=== PATIENT | female | born 1935 | race Caucasian/White ===

== ENCOUNTER → 2017-01-18 | Outpatient (CLI) | payer MEDICARE ==
[2016-02-27 14:15] VITALS: BP 147/79
[~2017-01-18] MED LIST: FAMO-63 PO; MAGIC MOUTHWASH PO; NAPR500T PO
--- NOTE | 2017-01-18 11:48 | RAD ---
DATE: 01/18/2017 EXAM: MAMMO ARBEN SCREENING BILATERAL HISTORY: Screening COMPARISON: 08/25/2015 This study was interpreted with the benefit of Computerized Aided Detection (CAD). FINDINGS: Breast Density: FATTY The Breast Parenchyma is primarily fatty replaced. Breast parenchyma level density A.. There is not been a significant change in the appearance of the breasts. Note is made of the right breast is slightly smaller than on the left similar to the previous exam IMPRESSION: Benign findings BI-RADS CATEGORY: 2 BENIGN FINDING(S) RECOMMENDED FOLLOW-UP: 12M 12 MONTH FOLLOW-UP PQRS compliance statement: Patient information was entered into a reminder system with a target due date 01/18/2018 for the next mammogram. Mammography is a sensitive method for finding small breast cancers, but it does not detect them all and is not a substitute for careful clinical examination. A negative mammogram does not negate a clinically suspicious finding and should not result in delay in biopsying a clinically suspicious abnormality. "Our facility is accredited by the [employer] Mammography [employer]."
== END | disposition home or self-care (01) ==
LOC: MAMMO 07:58
PROVIDERS: ATTEND Specialist
DX: Z12.31 Encounter for screening mammogram for malignant neoplasm of breast (principal)
CPT/HCPCS: 77063; G0202; 77067

== ENCOUNTER → 2018-01-14 | Outpatient (CLI) | payer MEDICARE ==
[2016-02-27 14:15] VITALS: BP 147/79
[~2018-01-14] MED LIST changes: +NAPR-683 PO; -NAPR500T PO
--- NOTE | 2018-01-14 12:54 | RAD ---
CT head without intravenous contrast History: Stupor, somnolence, altered mental status, recent falls. Comparison: None. Technique: Axial images are obtained of the head from the skull base through the vertex without IV contrast. Exposure: One or more of the following individualized dose reduction techniques were utilized for this examination: 1. Automated exposure control 2. Adjustment of the mA and/or kV according to patient size 3. Use of iterative reconstruction technique Findings: The ventricles are appropriate in size, shape, and location for the patient's age. No obvious intracranial mass, mass-effect, midline shift, hemorrhage or obvious acute infarction is identified. Basilar cisterns are patent. Small nonspecific calcification seen involving the left aspect of the nakul. Mild, patchy, subtle white matter low-attenuation is seen, probably from chronic microvascular ischemic disease. Bone windows demonstrate no acute calvarial abnormality. Bilateral maxillary, sphenoid, and ethmoid mucosal disease is seen.. Impression: 1. No acute intracranial process. 2. Mild, nonspecific white matter changes, probably from chronic microvessel ischemic disease. 3. Paranasal sinus disease. Electronically signed by: Rafi Estevez MD (01/14/2018 12:51 PM) [facility]
== END | disposition home or self-care (01) ==
LOC: CT 09:40
PROVIDERS: ATTEND Specialist
DX: R40.0 Somnolence (principal); R40.1 Stupor; R29.6 Repeated falls
CPT/HCPCS: 70450

== ENCOUNTER → 2018-01-23 | Outpatient (CLI) | payer MEDICARE ==
[2016-02-27 14:15] VITALS: BP 147/79
--- NOTE | 2018-01-23 16:28 | RAD ---
DATE: 01/23/2018 EXAM: DIGITAL SCREEN BILAT W/CAD HISTORY: Routine screening COMPARISON: 01/18/2017 This study was interpreted with the benefit of Computerized Aided Detection (CAD). The breast parenchyma is primarily fatty replaced. Breast parenchyma level density A. FINDINGS: No new or enlarging breast densities are seen. No suspicious microcalcifications are evident. IMPRESSION: Stable mammograms without evidence of malignancy. BI-RADS CATEGORY: 2 BENIGN FINDING(S) RECOMMENDED FOLLOW-UP: 12M 12 MONTH FOLLOW-UP PQRS compliance statement: Patient information was entered into a reminder system with a target due date for the next mammogram. Mammography is a sensitive method for finding small breast cancers, but it does not detect them all and is not a substitute for careful clinical examination. A negative mammogram does not negate a clinically suspicious finding and should not result in delay in biopsying a clinically suspicious abnormality. "Our facility is accredited by the [employer] Mammography [employer]."
== END | disposition home or self-care (01) ==
LOC: MAMMO 09:49
PROVIDERS: ATTEND Specialist
DX: Z12.31 Encounter for screening mammogram for malignant neoplasm of breast (principal)
CPT/HCPCS: 77067

== ENCOUNTER → 2019-09-14 | Outpatient (CLI) | payer MEDICARE ==
[2016-02-27 14:15] VITALS: BP 147/79
--- NOTE | 2019-09-14 18:09 | RAD ---
Examination: LUMBAR SPINE 2-3V History: Back pain Comparison/Correlation: None Findings: Total 3 images of the lumbar spine were obtained. Exaggerated lordosis of lumbar spine is present. Anterolisthesis of L4 in relation L5 is of almost grade 1 extent. Moderate L4-5 disc space narrowing is present. Advanced degenerative facet joint findings noted bilaterally at L4-5. T12-L1 disc space narrowing is notable with endplate sclerosis. No fracture or bone destruction. 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 Electronically signed by: Sedrick Langley MD (09/14/2019 6:06 PM) [facility]
--- NOTE | 2019-09-14 18:10 | RAD ---
Examination: SHOULDER 2+V RIGHT History: Right shoulder pain Comparison/Correlation: None Findings: Total 3 images of the right shoulder were obtained. Acromioclavicular joint degenerative narrowing and spurring present. Minimal joint is unremarkable. No fracture or bone destruction. Right upper lung field is unremarkable. Impression: Degenerative changes are present but much less than expected for age. Electronically signed by: Sedrick Langley MD (09/14/2019 6:07 PM) [facility]
== END | disposition home or self-care (01) ==
LOC: DXRAD 12:21
PROVIDERS: ATTEND Specialist
DX: M19.011 Primary osteoarthritis, right shoulder (principal); M47.816 Spondylosis without myelopathy or radiculopathy, lumbar region; M43.16 Spondylolisthesis, lumbar region; M48.05 Spinal stenosis, thoracolumbar region
CPT/HCPCS: 72100; 73030